=== PATIENT | female | born 1970 | race Caucasian/White ===

== ENCOUNTER 2022-11-28 12:30 | Observation (INO) | payer OTHER ==
[2022-11-28 12:36] VITALS: TEMP 97.6; BMI 33.0
[2022-11-28] MEDS ORDERED: METOCLOPRAMIDE HCL INJECTION 10 MG/2 ML VIAL IVPUSH ONE (14:19)
[2022-11-28] MEDS ORDERED: MECLIZINE HCL 25 MG TABLET (FP) PO ONE ×2 (14:19→16:21)
[2022-11-28] MEDS ORDERED: LACTATED RINGERS SOLUTION 1000 ML INFUS.BAG IV ONE (14:19)
[2022-11-28] MEDS ORDERED: ACETAMINOPHEN 1000 MG/100 ML BAG IVPB ONE (14:19)
[2022-11-28] MEDS ORDERED: MECLIZINE HCL 25 MG TABLET (FP) ONE ×2 (14:24→17:03)
[2022-11-28] MEDS ORDERED: METOCLOPRAMIDE HCL INJECTION 10 MG/2 ML VIAL ONE (14:25)
[2022-11-28] MEDS ORDERED: ACETAMINOPHEN INJECTION 100 ML IVPB ONE (14:25)
[2022-11-28 15:11] LABS: BASO % 0.4 % (0-2.0); EOS % 0.2 % (0-4.5); HEMATOCRIT 39.1 % (32.4-45.2); LYMPH % 19.1 % (8-40); MCHC 33.2 g/dl (32.0-36.0); MEAN CELL VOLUME 87.3 fl (80-96); MEAN PLT VOLUME 8.1 fl (7.5-11.1); MONO % 4.4 % (3.8-10.2); NEUT % 75.9 % (42.8-82.8); PLATELET COUNT 296 10^3/uL (134-434); RBC 4.48 M/mm3 (3.60-5.2); RDW 14.3 % (11.6-15.6); WHITE BLOOD COUNT 8.1 K/mm3 (4.0-10.0)
[2022-11-28 15:16] LABS: INR 1.12 (0.83-1.09)
[2022-11-28 15:19] LABS: ACTIVATED PTT 31.2 SECONDS (25.2-36.5)
[2022-11-28 15:26] LABS: POTASSIUM 3.9 mmol/L (3.5-5.1)
[2022-11-28 15:29] LABS: BLOOD UREA NITROGEN 9.5 mg/dL (7-18); MAGNESIUM 1.7 mg/dL (1.8-2.4)
[2022-11-28 15:32] LABS: CHOLESTEROL 208 mg/dL (50-200); CREATININE 0.7 mg/dL (0.55-1.3)
[2022-11-28 15:33] LABS: BILIRUBIN,TOTAL 0.5 mg/dL (0.2-1); LDL CHOLESTEROL (ONLY SJRH) 127 mg/dL (5-100); TOT PROT 7.4 g/dl (6.4-8.2)
[2022-11-28 15:35] LABS: HDL CHOLESTEROL 71 mg/dL (40-60)
[2022-11-28] MEDS ORDERED: ONDANSETRON 4 MG/2 ML VIAL IVPUSH ONE (16:21)
[2022-11-28] MEDS ORDERED: ONDANSETRON 4 MG/2 ML VIAL ONE (17:03)
[2022-11-28 17:43] LABS: URINE APPEARANCE CLEAR; URINE BILIRUBIN NEGATIVE (NEGATIVE); URINE COLOR YELLOW; URINE GLUCOSE (UA) NEGATIVE (NEGATIVE); URINE KETONE 1+ (NEGATIVE); URINE LEUK ESTERASE NEGATIVE (NEGATIVE); URINE NITRITE NEGATIVE (NEGATIVE); URINE PROTEIN NEGATIVE (NEGATIVE); URINE UROBILINOGEN 0.2 mg/dL (0.2-1.0)
[2022-11-28 18:19] VITALS: BP 123/66; PULSE 72; RESP 16
[2022-11-28] MEDS ORDERED: MAGNESIUM SULF 50% (8.12 MEQ/2 ML-1 GM VIAL) IVPB ONE (20:08)
[2022-11-28] MEDS ORDERED: MAGNESIUM SULFATE IN WATER 2 GM/50 ML IVPB IVPB ONE (20:12)
[2022-11-28] MEDS ORDERED: SODIUM CHLORIDE 1,000 ML IV SCH (23:15)
[2022-11-28] MEDS ORDERED: MECLIZINE HCL 25 MG TABLET (FP) PO PRN (23:25)
[2022-11-29] MEDS ORDERED: ENOXAPARIN NA (PORCINE) 40 MG/0.4 ML DISP.SYRIN SQ SCH (10:00)
[2022-11-29] MEDS ORDERED: ATORVASTATIN CA 40 MG TABLET (FP) PO SCH (22:00)
== END 2022-11-29 00:05 | disposition left against medical advice (07) ==
LOC: JER 12:30 → JERBED 17:05
PROVIDERS: ADMIT Internal Medicine; ATTEND Internal Medicine
PROC: 3E033NZ Introduction of Analgesics, Hypnotics, Sedatives into Peripheral Vein, Percutaneous Approach (ICD-10-PCS; principal; 2022-11-28)
PROC: 3E033GC Introduction of Other Therapeutic Substance into Peripheral Vein, Percutaneous Approach (ICD-10-PCS; 2022-11-28)
PROC: 3E0337Z Introduction of Electrolytic and Water Balance Substance into Peripheral Vein, Percutaneous Approach (ICD-10-PCS; 2022-11-28)
DX: R42 Dizziness and giddiness (principal); E66.9 Obesity, unspecified; R10.9 Unspecified abdominal pain; Z71.3 Dietary counseling and surveillance
CPT/HCPCS: 36415; 70450-TC; 80053; 80061; 81003; 83036; 83735; 84484; 85025; 85610; 85730; 86850; 86900; 86901; 93005; 93010; 96374; 96375; 99285-25; G0378